=== PATIENT | male | born 1965 | race Caucasian/White ===

== ENCOUNTER 2016-11-05 14:36 | Inpatient (IN) | payer MEDICAID, OTHER ==
[~2016-11-05] VITALS: Ht 200.7 cm; Wt 76.2 kg
--- NOTE | 2016-11-05 14:40 | NUR ---
PT [facility] FROM [facility]: S/P WITNESSED SEIZURE. PT CONFUSED . NO S/SX OF PAIN. NO SOB. PT HAS LFA #18 PATENT. PLACED ON MONITOR. VSS
--- NOTE | 2016-11-05 14:42 | NUR ---
CALLED CT TO COME TAKE PT
[2016-11-05] MEDS ORDERED: IV SET PRIMARY PUMP SET 1 EA INFUS.SET MC ONE ×2 (14:48→21:14)
[2016-11-05] MEDS ORDERED: IV NS 0.9% 1,000 ML ONE (14:48)
[2016-11-05 14:57] LABS: BASOPHILS # (AUTO) 0.1 /CMM (0.0-0.2); BASOPHILS % (AUTO) 2.9 % (0.0-2.0); EOSINOPHILS % (AUTO) 0.9 % (0.0-6.0); HEMATOCRIT 36 % (39-51); HEMOGLOBIN 12.4 g/dL (13.5-17.5); LYMPHOCYTES # (AUTO) 0.8 /CMM (0.8-4.8); MEAN CORPUSCULAR HEMOGLOBIN 37 PG (26.0-33.0); MEAN CORPUSCULAR HGB CONC 34 g/dl (31.0-36.0); MEAN CORPUSCULAR VOLUME 107 fL (80-96); MONOCYTES # (AUTO) 0.2 /CMM (0.1-1.30); NEUTROPHILS # (AUTO) 3.9 /CMM (1.8-8.9); NEUTROPHILS % (AUTO) 74.2 % (43.0-81.0); PLATELET COUNT (AUTO) 92 /CMM (150-450); RDW COEFFICIENT OF VARIATION 15.3 (11.5-15.0); RED BLOOD CELL COUNT(AUTO) 3.38 MIL/uL (4.5-6.0)
--- NOTE | 2016-11-05 14:58 | NUR ---
CT AT BEDSIDE. BLOOD SAMPLE COLLECTED SENT TO LAB.
[2016-11-05] MEDS ORDERED: phenytoin SODIUM IV 1,000 MG in IV NS 0.9% 100 ML IV ONE (15:00)
[2016-11-05] MEDS ORDERED: IV NS 0.9% 1,000 ML BAG IV ONE (15:00)
[2016-11-05 15:06] LABS: CALCIUM, SERUM 9.1 mg/dL (8.5-10.1); CARBON DIOXIDE 21 mmol/L (21-32); CHLORIDE 97 mmol/L (98-107); CREATININE 1.3 mg/dL (0.6-1.3); GFR 59 mL/min (>60); GLUCOSE 186 mg/dL (74-106); POTASSIUM 3.6 mmol/L (3.5-5.1); SODIUM SERUM 133 mmol/L (136-145); UREA NITROGEN, BLOOD 6 mg/dL (7-18)
[2016-11-05 15:12] LABS: ALANINE AMINOTRANSFERASE 77 U/L (12-78); ALBUMIN 3.7 g/dL (3.4-5.0); ALKALINE PHOSPHATASE 340 U/L (46-116); ASPARTATE AMINOTRANSFERASE 187 U/L (15-37); BILIRUBIN,DIRECT 0.4 mg/dL (0.0-0.2); INR 1.06 (0.87-1.13); TOTAL PROTEIN, SERUM 7.9 g/dL (6.4-8.2)
[2016-11-05 15:14] LABS: ALCOHOL, BLOOD < 3 mg/dL (0-0)
[2016-11-05] MEDS ORDERED: ONDANSETRON HCL/PF 4 MG/2 ML VIAL ONE ×2 (16:14→21:31)
--- NOTE | 2016-11-05 16:24 | NUR ---
PT NOTED TO BE VOMITING; MD NOTIFIED. ORDER FOR ZOFRAN 4MG IV RECEIVED AND ADMINISTERED.
[2016-11-05 16:26] LABS: ANISOCYTOSIS 1+; EOSINOPHILS % (MANUAL) 2 % (0-4); LYMPHOCYTES % (MANUAL) 22 % (16-48); MONOCYTES % (MANUAL) 5 % (0-11.0); NEUTROPHILS % (MANUAL) 71 (42-76); PLATELET ESTIMATE DECREASED
[2016-11-05] MEDS ORDERED: ONDANSETRON HCL/PF 4 MG/2 ML VIAL IV ONE (16:30)
[2016-11-05] MEDS ORDERED: METOCLOPRAMIDE HCL 10 MG/2 ML VIAL ONE (16:51)
[2016-11-05] MEDS ORDERED: METOCLOPRAMIDE HCL 10 MG/2 ML VIAL IV ONE (17:00)
--- NOTE | 2016-11-05 17:09 | NUR ---
URINE SAMPLE COLLECTED SENT TO LAB
[2016-11-05 17:19] LABS: APPEARANCE,URINE Clear (CLEAR); BILIRUBIN,URINE MODERATE (NEGATIVE); BLOOD, URINE Moderate Ery/uL (NEGATIVE); COLOR,URINE Yellow (YELLOW); KETONES,URINE Negative (NEGATIVE); LEUKOCYTE ESTERASE ,URINE Moderate (NEGATIVE); NITRITE, URINE Negative (NEGATIVE); PH,URINE 6.5 (5.0-8.0); PROTEIN,URINE 30 mg/dl (NEGATIVE); UGLUCOSE Negative (NEGATIVE); UROBILINOGEN,URINE 0.2 EU/dL (0.2)
[2016-11-05 17:25] LABS: PHENCYCLIDINE SCREEN,URINE NEGATIVE (NEGATIVE)
[2016-11-05 17:26] LABS: CANNABINOID, URINE POSITIVE (NEGATIVE)
[2016-11-05 17:33] LABS: ADD URINE CULTURE YES; BACTERIA,URINE 2+ /HPF (None Seen); SQUAMOUS EPITHELIAL CELL,UR Few /HPF (None Seen)
[2016-11-05] MEDS ORDERED: LORAZEPAM INJ 2 MG/ML VIAL ONE (17:55)
--- NOTE | 2016-11-05 17:55 | NUR ---
CALLED NURSING SUP. FOR TELE BED
[2016-11-05] MEDS ORDERED: LORAZEPAM INJ 2 MG/ML VIAL IV ONE (18:00)
--- NOTE | 2016-11-05 19:02 | NUR ---
REPORT REC'D FROM AHMET RAMIREZ
--- NOTE | 2016-11-05 19:06 | NUR ---
GAVE REPORT TO GUIDO CROWE
--- NOTE | 2016-11-05 19:07 | NUR ---
DR.SHAO HERNANDEZ
--- NOTE | 2016-11-05 19:36 | NUR ---
REPORT GIVEN TO AHMET REEDER
--- NOTE | 2016-11-05 19:49 | NUR ---
PT TRANSPORTED TO TELE VIA [facility] PER PROTOCOL.
[2016-11-05 20:00] VITALS: BP 140/85
[2016-11-05] MEDS ORDERED: LORA2TAB95 PO (20:26)
[2016-11-05] MEDS ORDERED: HYDR-3976 PO (20:26)
[2016-11-05] MEDS ORDERED: PANTOPRAZOLE 40 MG VIAL IV SCH (21:00)
[2016-11-05] MEDS ORDERED: CLONIDINE HCL 0.1 MG TABLET PO PRN (21:00)
[2016-11-05] MEDS ORDERED: ACETAMINOPHEN 325 MG TABLET PO PRN (21:00)
[2016-11-05] MEDS ORDERED: CEFTRIAXONE 1 G in IV D5W 50 ML IV SCH (21:00)
[2016-11-05] MEDS ORDERED: ONDANSETRON HCL/PF 4 MG/2 ML VIAL IV PRN (21:00)
[2016-11-05] MEDS ORDERED: HYDROCODONE/APAP 5/325MG 1 EACH TABLET ONE (21:10)
[2016-11-05] MEDS ORDERED: LORAZEPAM 1 MG TABLET ONE (21:11)
[2016-11-05] MEDS ORDERED: LEVETIRACETAM (250 MG) 250 MG TABLET PO ONE (21:12)
[2016-11-05] MEDS ORDERED: IV PREMIX 0.45% NS + KCL 1,000 ML IV ONE (21:12)
[2016-11-05] MEDS ORDERED: PANTOPRAZOLE 40 MG VIAL ONE (21:13)
[2016-11-05] MEDS ORDERED: ACETAMINOPHEN 325 MG TABLET ONE (21:13)
[2016-11-05] MEDS ORDERED: IV D5W 50 ML IV ONE (21:14)
[2016-11-05] MEDS ORDERED: SECONDARY IV SET 1 EA INFUS.SET MC ONE (21:14)
[2016-11-05] MEDS ORDERED: CEFTRIAXONE 1 G VIAL ONE (21:14)
[2016-11-05] MEDS: HYDROCODONE/APAP 5/325MG 1 EACH TABLET PO PRN (21:21)
[2016-11-05] MEDS: LEVETIRACETAM (250 MG) 250 MG TABLET PO SCH (21:22)
[2016-11-05] MEDS: LORAZEPAM 1 MG TABLET PO PRN (21:22)
[2016-11-06] VITALS: BP 132/87
[2016-11-06 04:00] VITALS: BP 110/82
[2016-11-06] MEDS ORDERED: HYDROCODONE/APAP 5/325MG 1 EACH TABLET ONE (04:39)
[2016-11-06] MEDS: HYDROCODONE/APAP 5/325MG 1 EACH TABLET PO PRN (04:44)
[2016-11-06] MEDS ORDERED: LORAZEPAM 1 MG TABLET ONE (06:10)
[2016-11-06] MEDS: LORAZEPAM 1 MG TABLET PO PRN (06:14)
--- NOTE | 2016-11-06 06:28 | NUR ---
TILLER MAN NOTES AWAKE & RESPONSIVE. NOT IN ANY DISTRESS. NO SOB NOTED. DENIES ANY PAIN OR DISCOMFORT AT THIS TIME. ON TELE SR @ 70 WITH IVF INFUSING WELL. MONITORED ACCORDINGLY. CALL LIGHT WITHIN REACH. BED IN LOWEST POSITION. SR UP X 2 FOR SAFETY. WILL ENDORSE TO NEXT SHIFT.
[2016-11-06 06:47] LABS: BASOPHILS % (AUTO) 0.2 % (0.0-2.0); EOSINOPHILS % (AUTO) 0.5 % (0.0-6.0); HEMATOCRIT 38 % (39-51); HEMOGLOBIN 12.7 g/dL (13.5-17.5); LYMPHOCYTES # (AUTO) 1.2 /CMM (0.8-4.8); LYMPHOCYTES % (AUTO) 20.5 % (20.0-44.0); MEAN CORPUSCULAR HEMOGLOBIN 36 PG (26.0-33.0); MEAN CORPUSCULAR HGB CONC 34 g/dl (31.0-36.0); MEAN CORPUSCULAR VOLUME 106 fL (80-96); MONOCYTES # (AUTO) 0.4 /CMM (0.1-1.30); MONOCYTES % (AUTO) 6.6 % (2.0-12.0); NEUTROPHILS # (AUTO) 4.3 /CMM (1.8-8.9); NEUTROPHILS % (AUTO) 72.2 % (43.0-81.0); PLATELET COUNT (AUTO) 92 /CMM (150-450); RDW COEFFICIENT OF VARIATION 16.1 (11.5-15.0); RED BLOOD CELL COUNT(AUTO) 3.55 MIL/uL (4.5-6.0)
[2016-11-06 07:15] LABS: CALCIUM, SERUM 8.8 mg/dL (8.5-10.1); CREATININE 1.1 mg/dL (0.6-1.3); POTASSIUM 3.7 mmol/L (3.5-5.1)
--- NOTE | 2016-11-06 07:20 | NUR ---
TELE/RN AM NOTES RECEIVED PATIENT IN BED, AWAKE, ALERT, NO SOB, NO CHEST PAIN, ON RA, TOLERATING WELL. IV LINE LFA PATENT, REMAINS NPO D/T SCHEDULED MRI. PATIENT IS AWARE, CONSENT SIGNED. NEEDS MET, KEPT COMFORTABLE WITH CALL LIGHT WITHIN EASY REACH. WILL CONTINUE TO MONITOR ACCORDINGLY
[2016-11-06 08:00] VITALS: BP 129/87
[2016-11-06] MEDS ORDERED: HYDROCODONE/APAP 7.5/325MG 1 EACH TABLET PO PRN ×2 (08:10→09:00)
[2016-11-06 09:22] LABS: THYROID STIMULATING HORMONE 1.335 uIU/mL (0.358-3.74)
[2016-11-06] MEDS ORDERED: HYDROCODONE/APAP 5/325MG 1 EACH TABLET PO PRN (09:30)
[2016-11-06] MEDS: LEVETIRACETAM (250 MG) 250 MG TABLET PO SCH (09:58)
[2016-11-06 10:49] LABS: EOSINOPHILS % (MANUAL) 6 % (0-4); LYMPHOCYTES % (MANUAL) 23 % (16-48); MONOCYTES % (MANUAL) 3 % (0-11.0); NEUTROPHILS % (MANUAL) 68 (42-76); PLATELET ESTIMATE DECREASED
[2016-11-06] MEDS ORDERED: ATOR80TA PO (11:22)
[2016-11-06] MEDS ORDERED: LORA1TAB PO (11:22)
[2016-11-06] MEDS ORDERED: ATEN25TA PO (11:22)
--- NOTE | 2016-11-06 12:18 | NUR ---
TELE/RN NOTES RESIDENT LEFT FOR MRI OF THE HEAD. ATIVAN 1MG IV X [address] GARCIA D/T PATIENT IS CLAUSTROPHOBIC
[2016-11-06] MEDS ORDERED: LORAZEPAM INJ 2 MG/ML VIAL IV ONE (12:30)
[2016-11-06 16:00] VITALS: BP 113/78
--- NOTE | 2016-11-06 17:15 | NUR ---
DISCHARGED PATIENT TO [facility] PER MD ORDER FOR CONTINUATION OF CARE, VIA GURNEY, IN STABLE CONDITION: VS 124/84, 64, 18, 97.4, 98%, 0/10 PAIN. NO CHEST PAIN, NO SOB, IV LINE INTACT LFA, NO REDNESS, DENIES PAIN. LEFT WITH ALL HIS BELONGINGS, DISCHARGE PAPERS AND PRESCRIPTION
[2016-11-06] MEDS ORDERED: GADOVERSETAMIDE 5 MMOL/10 ML VIAL IJ ONE (17:22)
[2016-11-06] MEDS ORDERED: GADOVERSETAMIDE 2.5 MMOL/5 ML VIAL IJ ONE (17:22)
[2016-11-07 19:21] LABS: *BASOS 0 % (.); *COMMENTS Note: (.); *EOS 0 % (.); *HCT 35.4 % (37.5-51.0); *HGB 12.3 g/dL (12.6-17.7); *IMMATURE GRANULOCYTES 0 % (.); *LYMPHOCYTES 20 % (.); *LYMPHS, ABSOLUTE 0.9 x10E3/uL (0.7-3.1); *MCH 36.2 pg (26.6-33.0); *MCHC 34.7 g/dL (31.5-35.7); *MCV 104 fL (79-97); *MONOCYTES 8 % (.); *MONOS, ABSOLUTE 0.4 x10E3/uL (0.1-0.9); *NEUTROPHILS 72 % (.); *NEUTROPHILS, ABSOLUTE 3.3 x10E3/uL (1.4-7.0); *PLT 75 x10E3/uL (150-379); *RDW 14.9 % (12.3-15.4); *WBC 4.6 x10E3/uL (3.4-10.8)
[2016-11-08 14:17] LABS: *% CD 4 POS. LYMPH 25.8 % (30.8-58.5); *ABSOLUTE CD 4 HELPER 232 /uL (359-1519); *ABSOLUTE CD 8 SUPPRESSOR 441 /uL (109-897); *CD4/CD8 RATIO 0.53 (0.92-3.72)
== END 2016-11-06 17:23 | disposition short-term general hospital (02) | DRG 101 ==
LOC: ER 14:37 → TELE 20:06 → MED 11-06 10:36
PROVIDERS: ADMIT Internal Medicine; ATTEND Internal Medicine
DX: G40.909 Epilepsy, unspecified, not intractable, without status epilepticus (principal); I10 Essential (primary) hypertension; Z88.8 Allergy status to other drugs, medicaments and biological substances
CPT/HCPCS: 36415; 70450-TC; 70553-TC; 71010-TC; 74150-TC; 80048-TC; 80076-TC; 80305; 81000-TC; 84443-TC; 85025-TC; 85730-TC; 86360; 87081-TC; 87086-TC; 95819-TC; A9579; C9113; G0480; J0696; J1165; J2060; J2405; J2765; J3480; J3490; J7030; J7060